=== PATIENT | female | born 1965 | race Caucasian/White ===

== ENCOUNTER 2018-04-23 11:18 | Emergency (ER) | payer OTHER ==
[~2018-04-23] VITALS: Ht 152.4 cm; Wt 66.3 kg
[2018-04-23 11:43] LABS: BASOPHIL (%) 0.6 % (0-1); BASOPHIL COUNT 0.1 K/uL (0-0.1); EOSINOPHIL (%) 0.5 % (0-5); EOSINOPHIL COUNT 0.1 K/uL (0-0.3); HEMATOCRIT 37.5 % (36.0-46.0); HEMOGLOBIN 12.5 G/DL (11.9-15.5); IMMATURE GRANULOCYTE (%) 0.2 % (0.0-0.7); LYMPHOCYTE (%) 16.5 % (15-42); LYMPHOCYTE COUNT 1.8 K/uL (1.0-2.8); MCH 29.3 PG (29.0-34.0); MCHC 33.3 G/DL (30.0-36.0); MCV 87.8 FL (83-99); MONOCYTE (%) 3.4 % (3-12); MONOCYTE COUNT 0.4 K/uL (0-0.8); NEUTROPHIL (%) 78.8 % (45-76); NEUTROPHIL COUNT 8.4 K/uL (1.8-6.4); PLATELET COUNT 206 K/uL (156-360); RBC DIS.WIDTH-CV 14.2 % (11.8-14.6); RBC DIS.WIDTH-SD 45.8 % (39-53); RED BLOOD COUNT 4.27 M/uL (3.80-5.20); WHITE BLOOD COUNT 10.6 K/uL (4.1-10.2)
[2018-04-23 11:55] LABS: CHLORIDE 107 mEq/L (99-109); POTASSIUM 4.1 mEq/L (3.7-5.4); SODIUM 143 mEq/L (136-147)
[2018-04-23 11:56] LABS: APPEARANCE CLEAR ((CLEAR)); BILIRUBIN NEGATIVE; BLOOD NEGATIVE; COLOR YELLOW ((YELLOW)); GLUCOSE (STRIP) NEGATIVE; KETONES NEGATIVE; LEUKOCYTES NEGATIVE; NITRITE NEGATIVE; PROTEIN (STRIP) NEGATIVE; SPECIFIC GRAVITY 1.008 (1.000-1.030); UROBILINOGEN 0.2 MG/DL (0.2-1.0)
[2018-04-23 11:57] LABS: GLUCOSE 97 mg/dL (70-99); TOTAL PROTEIN 6.4 g/dL (6.4-8.3)
[2018-04-23 11:59] LABS: TOTAL BILIRUBIN 0.3 mg/dL (0.0-1.0)
[2018-04-23 12:00] LABS: ALKALINE PHOSPHATASE 120 IU/L (3-129); CREATININE 0.8 mg/dL (0.6-1.3)
[2018-04-23 12:02] LABS: AST (GOT) 24 IU/L (2-34); UREA NITROGEN (BUN) 12 mg/dL (9-23)
[2018-04-23 12:03] LABS: ALT (GPT) 27 IU/L (3-49)
[2018-04-23 12:04] LABS: LIPASE 14 U/L (1.0-51.0)
[2018-04-23 12:16] LABS: GFR ESTIMATE (CALCULATED) > 59 mL/min/
[2018-04-23] MEDS ORDERED: IMODIUM A-D2 M2 PO (13:33)
[2018-04-23] MEDS ORDERED: BENTYL20 MG PO (13:33)
[2018-04-23] MEDS ORDERED: ZOFRAN4 MG PO (13:33)
[2018-04-23 13:46] VITALS: BP 132/67
== END 2018-04-23 13:54 | disposition home or self-care (01) ==
LOC: EME 11:18
PROVIDERS: Emergency Medicine
DX: R10.9 Unspecified abdominal pain (principal); R11.2 Nausea with vomiting, unspecified; R19.7 Diarrhea, unspecified; Z87.19 Personal history of other diseases of the digestive system; K21.9 Gastro-esophageal reflux disease without esophagitis; F43.10 Post-traumatic stress disorder, unspecified; F17.200 Nicotine dependence, unspecified, uncomplicated
CPT/HCPCS: 80053; 81003; 83690; 85025; 87493; 99281; 99284; J1885; J2405; J3010; J7030